=== PATIENT | male | born 1940 | race Caucasian/White ===

== ENCOUNTER 2018-04-20 14:13 | Emergency (ER) | payer OTHER ==
[~2018-04-20] VITALS: Ht 190.5 cm; Wt 90.1 kg
[~2018-04-20 14:13] MED LIST: CARV-39 PO; CEPH-368 PO; DIAZ5TAB4 PO; FURO20TA3 PO; HYDR-3240 PO; LISI-170 PO; OMEP-110 PO; POTA10TA31 PO; SIMV20TA3 PO; TRAM50TA2 PO; WARF-36 PO
[2018-04-20 14:14] VITALS: BP 137/81
== END 2018-04-20 15:34 | disposition home or self-care (01) ==
LOC: ED 15:15
DX: L03.113 Cellulitis of right upper limb (principal); M70.21 Olecranon bursitis, right elbow
CPT/HCPCS: 99283